=== PATIENT | male | born 1955 | race Caucasian/White ===

== ENCOUNTER → 2017-11-21 | Outpatient (CLI) | payer MEDICARE | END | disposition home or self-care (01) | LOC: PETCFH 08:03 | PROVIDERS: ATTEND Nurse Practitioner Gerontology | DX: R09.89 Other specified symptoms and signs involving the circulatory and respiratory systems (principal); R91.8 Other nonspecific abnormal finding of lung field | CPT/HCPCS: 78815; A9552 ==